=== PATIENT | female | born 1995 | race Two or more races ===

== ENCOUNTER 2018-03-31 15:10 | Emergency (ER) | payer BC ==
[2018-03-31] MEDS ORDERED: PROCHLORPERAZINE MALEATE 5 MG TABLET PO ONE (16:21)
[2018-03-31] MEDS ORDERED: ONDANSETRON 4 MG TAB.RAPDIS PO ONE (16:21)
[2018-03-31 16:48] LABS: ABSOLUTE BASOPHILS # (AUTO) 0.1 10^3/uL (0.0-0.2); ABSOLUTE EOSINOPHILS # (AUTO) 0.2 10^3/uL (0.0-0.6); ABSOLUTE LYMPHOCYTES (AUTO) 2.7 10^3/uL (0.5-4.7); ABSOLUTE MONOCYTES (AUTO) 0.9 10^3/uL (0.1-1.4); ABSOLUTE NEUT (AUTO) 9.6 10^3/uL (1.7-8.2); BASOPHILS % (AUTO) 0.6 % (0-2); EOSINOPHILS % (AUTO) 1.5 % (0-6); HEMATOCRIT 44.8 % (36.0-47.0); HEMOGLOBIN 15.3 g/dL (12.0-15.5); LYMPHOCYTES % (AUTO) 19.7 % (13-45); MEAN CORPUSCULAR HEMOGLOBIN 31.6 pg (27.0-33.4); MEAN CORPUSCULAR HGB CONC 34.2 g/dL (32.0-36.0); MEAN CORPUSCULAR VOLUME 92 fl (80-97); MONOCYTES % (AUTO) 6.8 % (3-13); PLATELET COUNT 347 10^3/uL (150-450); RED BLOOD COUNT 4.85 10^6/uL (3.72-5.28); RED CELL DISTRIBUTION WIDTH 13.5 % (11.5-14.0); SEGMENTED NEUTROPHILS % (AUTO) 71.4 % (42-78); TOTAL CELLS COUNTED % (AUTO) 100 %; WHITE BLOOD COUNT 13.4 10^3/uL (4.0-10.5)
[2018-03-31 16:54] LABS: APPEARANCE,URINE SLIGHTLY-CLOUDY; BILIRUBIN,URINE NEGATIVE (NEGATIVE); COLOR,URINE YELLOW; GLUCOSE, URINE NEGATIVE (NEGATIVE); KETONES,URINE NEGATIVE (NEGATIVE); LEUKOCYTE ESTERASE,URINE NEGATIVE (NEGATIVE); NITRITE,URINE NEGATIVE (NEGATIVE); PROTEIN,URINE NEGATIVE (NEGATIVE); URINE SPECIFIC GRAVITY 1.021; UROBILINOGEN,URINE NEGATIVE mg/dL (<2.0)
[2018-03-31 17:11] LABS: ALANINE AMINOTRANSFERASE 22 U/L (9-52); ALBUMIN 4.6 g/dL (3.5-5.0); ALKALINE PHOSPHATASE 86 U/L (38-126); ANION GAP 10 (5-19); ASPARTATE AMINO TRANSFERASE 22 U/L (14-36); BILIRUBIN,DIRECT 0.3 mg/dL (0.0-0.4); BILIRUBIN,TOTAL 0.7 mg/dL (0.2-1.3); BLOOD UREA NITROGEN 9 mg/dL (7-20); CALCIUM 10.1 mg/dL (8.4-10.2); CARBON DIOXIDE 25 mmol/L (22-30); CHLORIDE 104 mmol/L (98-107); GLUCOSE 92 mg/dL (75-110); LIPASE 50.1 U/L (23-300); POTASSIUM 4.5 mmol/L (3.6-5.0); SODIUM 138.7 mmol/L (137-145)
--- NOTE | 2018-03-31 17:59 | ER Document Report ---
ED General - General Chief Complaint: Dizziness Stated Complaint: DIZZY, BODYACHES Time Seen by Provider: 03/31/18 16:20 TRAVEL OUTSIDE OF THE [place] IN LAST 30 DAYS: No - HPI Patient complains to provider of: Dizziness body aches feeling well Notes: Patient coming in for dizziness body aches feeling unwell concerned that she has not had a menstrual period since January. Patient states she is taken home test to have been negative. Patient denies any fevers chills states slight nausea vomiting no diarrhea. Patient otherwise well rested denies any increased fatigue or increase physical activity. Patient looks to be no obvious distress upon my evaluation. - Related Data Allergies/Adverse Reactions: No Known Allergies Allergy (Verified 03/31/18 16:03) Past Medical History - Social History Smoking Status: Current Every Day Smoker Chew tobacco use (# tins/day): No Frequency of alcohol use: Social Drug Abuse: None, Marijuana Family History: Reviewed & Not Pertinent Patient has suicidal ideation: No Patient has homicidal ideation: No Renal/ Medical History: Denies: Hx Peritoneal Dialysis Review of Systems - Review of Systems Constitutional: Other - Dizziness feeling unwell myalgias EENT: No symptoms reported Cardiovascular: No symptoms reported Respiratory: No symptoms reported Gastrointestinal: No symptoms reported Genitourinary: No symptoms reported Female Genitourinary: No symptoms reported Musculoskeletal: No symptoms reported Skin: No symptoms reported Hematologic/Lymphatic: No symptoms reported Neurological/Psychological: No symptoms reported -: Yes All other systems reviewed and negative Physical Exam - Vital signs Vitals: Temp Pulse Resp BP Pulse Ox 98.5 F 74 18 149/88 H 100 03/31/18 15:38 03/31/18 15:38 03/31/18 15:38 03/31/18 15:38 03/31/18 15:38 Interpretation: Normal - General General appearance: Appears well, Alert - HEENT Head: Normocephalic, Atraumatic Eyes: Normal Pupils: PERRL - Respiratory Respiratory status: No respiratory distress Chest status: Nontender Breath sounds: Normal Chest palpation: Normal - Cardiovascular Rhythm: Regular Heart sounds: Normal auscultation Murmur: No - Abdominal Inspection: Normal Distension: No distension Bowel sounds: Normal Tenderness: Nontender Organomegaly: No organomegaly - Back Back: Normal, Nontender - Extremities General upper extremity: Normal inspection, Nontender, Normal color, Normal ROM , Normal temperature General lower extremity: Normal inspection, Nontender, Normal color, Normal ROM , Normal temperature, Normal weight bearing. No: Evelio's sign - Neurological Neuro grossly intact: Yes Cognition: Normal Orientation: AAOx4 Viky Coma Scale Eye Opening: Spontaneous [place] Coma Scale Verbal: Oriented Viky Coma Scale Motor: Obeys Commands [place] Coma Scale Total: 15 Speech: Normal Motor strength normal: LUE, RUE, LLE, RLE Sensory: Normal - Psychological Associated symptoms: Normal affect, Normal mood - Skin Skin Temperature: Warm Skin Moisture: Dry Skin Color: Normal Course - Re-evaluation Re-evalutation: 03/31/18 21:04 Patient with slight white count possibly because of underlying viral syndrome. Patient is not no clear etiology for her amenorrhea at this time. Patient is follow-up with [facility]. Patient was discharged home. - Vital Signs Vital signs: Temp Pulse Resp BP Pulse Ox 97.4 F 78 16 169/103 H 100 03/31/18 18:02 03/31/18 18:02 03/31/18 18:02 03/31/18 18:02 03/31/18 18:02 - Laboratory Result Diagrams: 03/31/18 16:33 03/31/18 16:33 Laboratory results interpreted by me: 03/31/18 16:33 WBC 13.4 H Absolute Neutrophils 9.6 H Discharge - Discharge Clinical Impression: Flu-like symptoms Condition: Good Disposition: HOME, SELF-CARE Instructions: Dizziness ([facility]) Additional Instructions: Your symptoms are consistent with a viral illness would highly recommend that you make sure that you drink plenty of fluids to stay well-hydrated. He may use the medication as prescribed for any nausea Compazine and Zofran. I recommend taking Tylenol Motrin for pain control. Return to ER symptoms worsen follow-up with your primary care physician. Prescriptions: Ondansetron HCl [Zofran 4 mg Tablet] 1 - 2 tab PO Q6 #30 tablet Prochlorperazine Maleate [Compazine] 5 mg PO Q6 #30 tablet Forms: Return to Work
[2018-03-31 18:08] VITALS: BP 169/103
== END 2018-03-31 18:08 | disposition home or self-care (01) ==
LOC: ER 15:10
DX: R42 Dizziness and giddiness (principal); M79.10 Myalgia, unspecified site; F17.200 Nicotine dependence, unspecified, uncomplicated
CPT/HCPCS: 99284; 36415; 83690; 85025; 81025; 80053; 81001; S0119; S0183